=== PATIENT | male | born 2000 | race Caucasian/White ===

== ENCOUNTER 2022-03-18 20:17 | Inpatient (IN) ==
[2022-03-18 20:57] LABS: Hematocrit (blood only) 53.9 % (42-52); Hemoglobin 19.2 g/dL (14.0-18.0); Mean Corpuscular Hemoglobin 32.4 pg (25-34); Mean Corpuscular Hgb Conc 35.6 g/dL (32-36); Mean Platelet Volume 9.2 fL (7.4-10.4); Platelet Count 360 K/uL (130-400); RDW Standard Deviation 40.1 fL (36.4-46.3); Red Blood Count 5.92 M/uL (4.7-6.1); White Blood Count 25.33 K/uL (4.8-10.8)
[2022-03-18] MEDS ORDERED: SODIUM CHLORIDE 0.9% 1000ML 1,000 ML IV ONE (21:14)
[2022-03-18] MEDS ORDERED: ONDANSETRON INJ 2 MG/ML 2 ML VIAL IV STA ×2 (21:14→21:40)
[2022-03-18] MEDS ORDERED: MoRPHine SULFATE 4 MG/ML 1 ML CARP\\VIAL IV STA (21:40)
[2022-03-18] MEDS ORDERED: FAMOTIDINE 20MG IV PUSH 20 MG/5 ML SYR IV STA (21:40)
[2022-03-18] MEDS ORDERED: SODIUM CHLORIDE 0.9% 1000ML 2,000 ML IV ONE (21:42)
[2022-03-18 21:45] LABS: Bilirubin,Total 1.1 mg/dl (0.2-1.0); Calcium 10.4 mg/dl (8.5-10.1); Creatinine Clr Calc Pharmacy 78.9 ml/min; Est GFR (African American) 74.2 ml/min; Est GFR (Non-African American) 64.1 ml/min; Potassium 5.5 mmol/L (3.5-5.1)
[2022-03-18] MEDS ORDERED: LACTATED RINGER'S 1,000 ML IV SCH (21:45)
[2022-03-18 21:50] LABS: Basophils # (auto) 0.02 K/uL (0-0.2); Basophils % (auto) 0.1 %; Eosinophils # (auto) 0.03 K/uL (0-0.5); Eosinophils % (auto) 0.1 %; Immature Granulocytes # (auto) 0.25 K/uL (0.00-0.02); Lymphocytes # (auto) 1.84 K/uL (1.2-3.4); Lymphocytes % (auto) 7.3 %; Monocytes # (auto) 1.63 K/uL (0.11-0.59); Monocytes % (auto) 6.4 %; Neutrophils # (auto) 21.56 K/uL (1.4-6.5); Neutrophils % (auto) 85.1 %
[2022-03-18] MEDS ORDERED: STAT IV Infusion **Titration per Protocol STA ×2 (21:52)
[2022-03-18] MEDS ORDERED: DKA GOAL RANGE 150-250 mg/dl ONE (21:52)
[2022-03-18 21:59] LABS: Albumin Globulin Ratio 1.8 (0.9-2); Albumin Level 6.6 gm/dl (3.4-5.0); Globulin 3.6 gm/dl (2.5-4.0); Total Protein 10.2 gm/dl (6.0-8.3)
[2022-03-18] MEDS ORDERED: INSULIN REGULAR 250 UNITS in SODIUM CHLORIDE 0.9% 247.5 ML IV SCH ×2 (22:00→22:15)
[2022-03-18 22:10] LABS: iSTAT Arterial Blood Gas HCO3 4 meg/L (19-24); iSTAT Arterial Blood Gas pCO2 16 mmHg (35-46); iSTAT Arterial Blood Gas pH 7.03 (7.35-7.45); iSTAT Arterial Blood Gas pO2 120 mmHg (80-95); iSTAT Carbon Dioxide < 5 mmol/L (24-31)
[2022-03-18] MEDS ORDERED: NovoLIN-R BOLUS FROM BAG IV ONE (22:14)
[2022-03-18] MEDS ORDERED: DEXTROSE 50% 50 ML SYRINGE IV PRN (22:15)
[2022-03-18] MEDS ORDERED: CARBOHYDRATES FOR HYPOGLYCEMIA PO PRN (22:15)
[2022-03-18] MEDS ORDERED: GLUCOSE 10 TABS/TUBE PO PRN (22:15)
[2022-03-18] MEDS ORDERED: GLUCAGON FOR INJ 1 MG VIAL IM PRN (22:15)
[2022-03-18] MEDS ORDERED: GLUCOSE 40% GEL 15 GM TUBE PO PRN (22:15)
[2022-03-18 22:49] LABS: INR 1.1 (0.9-1.1); Partial Thromboplastin Ratio 1.1; Partial Thromboplastin Time 29.1 Seconds (21.0-31.0); Prothrombin Time 11.6 Seconds (9.0-12.0)
[2022-03-18 23:01] LABS: BUN Creatinine Ratio 20.4 (10-20); Calcium 8.7 mg/dl (8.5-10.1); Creatinine Clr Calc Pharmacy 115.2 ml/min; Est GFR (African American) 113.1 ml/min; Est GFR (Non-African American) 97.6 ml/min; Magnesium 2.1 mg/dl (1.7-2.4); Phosphorus 5.2 mg/dl (2.5-4.9); Potassium 6.4 mmol/L (3.5-5.1); Troponin I High Sensitivity 7.8 pg/ml (0-20)
[2022-03-18] MEDS ORDERED: CALCIUM GLUCONATE 1,000 MG/60 ML BAG IV ONE (23:04)
[2022-03-18] MEDS ORDERED: SODIUM BICARB 8.4% INJ 50 MEQ/50 ML SYR IV STA (23:04)
[2022-03-18] MEDS ORDERED: STAT IV STA (23:04)
[2022-03-18 23:09] LABS: Influenza A virus by PCR Negative (Neg); Influenza B virus by PCR Negative (Neg); RSV by PCR Negative (Neg); SARS CoV2 RNA(COVID-19) InHosp NEGATIVE (Negative)
[2022-03-18] MEDS ORDERED: OPTIRAY 320 100ml IV ONE (23:09)
[2022-03-18] MEDS ORDERED: METOCLOPRAMIDE HCL INJ 5 MG/ML 2 ML VIAL IV ONE ×2 (23:26→23:27)
--- NOTE | 2022-03-19 01:09 | Emergency Department Note ---
History of Present Illness General Chief complaint: Hyperglycemia Stated complaint: DEHYDRATED, DIABETIC Time Seen by Provider: 03/18/22 21:30 History of Present Illness Maximum Pain Intensity: 5 This 21-year-old type I diabetic on a pump presents to the ER complaining of nausea vomiting abdominal pain and his pump quit working last night Location: Generalized Quality: Weak and dehydrated Severity: Severe Duration: Last night Timing: Last night Context: Patient continued to vomit and came in Modifying factors: better with nothing; worse with nothing patient states he is in town visiting. He is from the [facility]. Patient is unsure how much insulin he uses daily. Patient complains s of nausea vomiting abdominal pain. patient states he only has been in DKA's with his initial diagnosis of diabetes when he was young. Patient denies chest pain, dyspnea, fever, chills, flulike illness. Home Medications Medication Instructions Recorded Confirmed Type insulin aspart U-100 100 unit/mL 0 unit CONTINUOUS SUBCUTANEOUS 03/18/22 03/18/22 History subcutaneous solution (Novolog INFUSION CONTINOUS U-100 Insulin aspart) Allergies Allergy/AdvReac Type Severity Reaction Status Date / Time No Known Allergies Allergy Verified 03/18/22 21:12 Past Med/Surg History Medical History Diabetes Surgical History No pertinent past surgical history Social History Smoking Status: Never smoker Preferred Language: Tajik Feels Safe at Home: Yes Review of Systems A total of 10 systems reviewed and were otherwise negative Physical Exam Vital Signs Vital Signs - 24 hr 03/18/22 20:22 03/18/22 20:50 03/18/22 21:00 Temperature 36.3 C L Temperature Source Temporal Artery Scan Pulse Rate 99 H 93 H 97 H Pulse Rate from SpO2 Sensor Respiratory Rate 97 H 24 14 Respiratory Effort / Characteristics Non-Labored Spontaneous Respiratory Depth Normal Respiratory Pattern Regular Blood Pressure 145/91 H 158/97 H 164/117 H Blood Pressure Mean 109 117 132 Blood Pressure Position Sitting Pulse Oximetry 97 Oxygen Delivery Method Room Air Sepsis Recent Fever Within 48 Hours No Sepsis New/Unexplained Change in Mental Status N/A Sepsis Action Taken by Nursing No Action Required 03/18/22:30 03/18/22 22:00 03/18/22 22:30 Temperature Temperature Source Pulse Rate 99 H 106 H 117 H Pulse Rate from SpO2 Sensor Respiratory Rate 25 H 22 23 Respiratory Effort / Characteristics Respiratory Depth Respiratory Pattern Blood Pressure 172/80 H Blood Pressure Mean 110 Blood Pressure Position Pulse Oximetry Oxygen Delivery Method Sepsis Recent Fever Within 48 Hours Sepsis New/Unexplained Change in Mental Status Sepsis Action Taken by Nursing 03/18/22 23:13 03/18/22 23:15 03/18/22 23:30 Temperature Temperature Source Pulse Rate 113 H 106 H 105 H Pulse Rate from SpO2 Sensor 107 H 104 H Respiratory Rate 19 20 20 Respiratory Effort / Characteristics Respiratory Depth Respiratory Pattern Blood Pressure 151/87 H 160/90 H Blood Pressure Mean 108 113 Blood Pressure Position Pulse Oximetry 97 98 Oxygen Delivery Method Sepsis Recent Fever Within 48 Hours Sepsis New/Unexplained Change in Mental Status Sepsis Action Taken by Nursing 03/18/22 23:59 03/19/22 00:55 Temperature 36.5 C Temperature Source Oral Pulse Rate 102 H Pulse Rate from SpO2 Sensor 103 H Respiratory Rate 24 Respiratory Effort / Characteristics Respiratory Depth Respiratory Pattern Blood Pressure 131/84 Blood Pressure Mean 99 Blood Pressure Position Pulse Oximetry 96 Oxygen Delivery Method Sepsis Recent Fever Within 48 Hours Sepsis New/Unexplained Change in Mental Status Sepsis Action Taken by Nursing VITALS: Vitals are noted on the nurse's note and reviewed by myself. Vital signs tachypneic and tachycardic. GENERAL: Acutely ill-appearing male with Kussmaul breathing diaphoretic vomiting SKIN: The skin was without rashes, erythema, edema, or bruising. There is no tenting of the skin. Capillary reflex less than 2 seconds. HEAD: Normocephalic atraumatic. EARS: External auditory canals clear, tympanic membranes pearly cole without erythema or effusion bilaterally. EYES: Pupils equal round and reactive to light and accommodation. Conjunctivae without injection, sclerae without icterus. Extraocular movements intact. NOSE: Patent, turbinates without inflammation or discharge. No sinus tenderness. MOUTH: Mucous membranes dry. Pharynx without erythema or exudate. Uvula midline. Airway patent. Tongue does not deviate. NECK: Supple without nuchal rigidity. No lymphadenopathy. No thyromegaly. Cervical spine is nontender. No JVD. HEART: Tachycardic rate and rhythm LUNGS: Clear to auscultation bilaterally without wheezes, rales or rhonchi. No retractions or accessory muscle use. ABDOMEN: Positive bowel sounds x 4. Normal tympanic percussion. Soft, mild diffuse tenderness, without masses or organomegaly. Haines sign negative. No guarding or rebound tenderness. No CVA tenderness MUSCULOSKELETAL: No muscle atrophy, erythema, or edema noted. NEURO: Patient was alert and oriented to person place and time. Normal sensation to light and sharp touch. No focal neurological deficits. Course Administered Medications Lactated Ringer's (Lr) 1,000 mls @ 125 mls/hr IV .Q8H NISHA Stop: 04/17/22 21:44 Last Admin: 03/18/22 23:31 Dose: 125 mls/hr Documented by: [id number] Insulin Human Regular 250 (units/ Sodium Chloride) 250 mls @ 0 mls/hr IV .Q0M NISHA; Protocol Stop: 04/17/22 21:59 Last Titration: 03/19/22 00:43 Dose: 0 unit/hr, 0 mls/hr Documented by: [id number] Cosigned by: [id number] Titration: 03/18/22 23:43 Dose: 9.7 unit/hr, 9.7 mls/hr Documented by: [id number] Cosigned by: [id number] Admin: 03/18/22 22:30 Dose: 8.1 unit/hr, 8.1 mls/hr Documented by: [id number] Cosigned by: [id number] Discontinued Medications Sodium Chloride (Nss 1000ml) 1,000 mls @ 999 mls/hr IV .Q1H1M ONE Stop: 03/18/22 22:14 Last Infusion: 03/18/22 21:41 Dose: 0 mls/hr Documented by: [id number] Admin: 03/18/22 20:36 Dose: 999 mls/hr Documented by: [id number] Famotidine (Pepcid 20mg Iv Push) 20 mg in 5 mls @ 2.5 mls/min IV NOW STA Stop: 03/18/22 21:41 Last Admin: 03/18/22 22:09 Dose: 2.5 mls/min Documented by: [id number] Sodium Chloride (Nss 1000ml) 2,000 mls @ 999 mls/hr IV .Q2H1M ONE Stop: 03/18/22 23:42 Last Infusion: 03/19/22 00:32 Dose: 0 mls/hr Documented by: [id number] Admin: 03/18/22 22:01 Dose: 999 mls/hr Documented by: [id number] Calcium Gluconate () 1,000 mg in 60 mls @ 240 mls/hr IV NOW ONE Stop: 03/18/22 23:18 Last Infusion: 03/19/22 00:32 Dose: 0 mls/hr Documented by: [id number] Admin: 03/18/22 23:30 Dose: 240 mls/hr Documented by: [id number] Insulin Human Regular (Novolin-R Bolus From Bag) 8.1 units IV ONE ONE Stop: 03/18/22 22:15 Last Admin: 03/18/22 22:55 Dose: 8.1 units Documented by: [id number] Cosigned by: [id number] Ioversol (Optiray 320 100ml) 94 ml IV ONCE ONE Stop: 03/18/22 23:10 Last Admin: 03/18/22 23:09 Dose: 94 ml Documented by: [id number] Metoclopramide HCl (Metoclopramide Hcl Inj 5 Mg/Ml 2 Ml Vial) 5 mg IV ONE ONE Stop: 03/18/22 23:27 Last Admin: 03/19/22 00:31 Dose: Not Given Documented by: [id number] Metoclopramide HCl (Metoclopramide Hcl Inj 5 Mg/Ml 2 Ml Vial) 5 mg IV ONE ONE Stop: 03/18/22 23:28 Last Admin: 03/18/22 23:32 Dose: 5 mg Documented by: [id number] Morphine Sulfate (Morphine Sulfate 4 Mg/Ml 1 Ml Carp\Vial) 4 mg IV NOW STA Stop: 03/18/22 21:41 Last Admin: 03/18/22 22:08 Dose: 4 mg Documented by: [id number] Ondansetron HCl (Ondansetron Inj 2 Mg/Ml 2 Ml Vial) 4 mg IV NOW STA Stop: 03/18/22 21:15 Last Admin: 03/18/22 21:20 Dose: 4 mg Documented by: [id number] Ondansetron HCl (Ondansetron Inj 2 Mg/Ml 2 Ml Vial) 4 mg IV NOW STA Stop: 03/18/22 21:41 Last Admin: 03/18/22 23:31 Dose: Not Given Documented by: [id number] Sodium Bicarbonate (Sodium Bicarb 8.4% Inj 50 Meq/50 Ml Syr) 50 meq IV NOW STA Stop: 03/18/22 23:05 Last Admin: 03/18/22 23:30 Dose: 50 meq Documented by: [id number] Critical Care Time Critical Care Time: Yes Total Critical Care Time: 65 I have personally spent 65 minutes of critical care time in the direct management of this patient. This includes bedside care, interpretation of diagnostic studies, and testing, discussion with consultants, patient, and family members, and other required patient management activities. This 65 minutes is in excess of all separately billable procedures. Medical Decision Making Medical Records Attestation: I reviewed the patient's medical records. Home Medications Current Medication List: was personally reviewed by me Laboratory Data Attestation: I reviewed the patient's lab results. Result diagrams: 03/18/22 20:40 03/18/22 22:21 Lab Results 03/18/22 03/18/22 03/18/22 Range/Units 20:40 20:40 21:56 WBC 25.33 H (4.8-10.8) K/uL RBC 5.92 (4.7-6.1) M/uL Hgb 19.2 H (14.0-18.0) g/dL Hct 53.9 H (42-52) % MCV 91.0 (80-100) fL MCH 32.4 (25-34) pg MCHC 35.6 (32-36) g/dL RDW Std Deviation 40.1 (36.4-46.3) fL RDW Coeff of Lula 12.0 (11.5-14.5) % Plt Count 360 (130-400) K/uL MPV 9.2 (7.4-10.4) fL Immature Gran % (Auto) 1.0 % Neut % (Auto) 85.1 % Lymph % (Auto) 7.3 % Sheridan % (Auto) 6.4 % Eos % (Auto) 0.1 % Baso % (Auto) 0.1 % Neut # (Auto) 21.56 H (1.4-6.5) K/uL Lymph # (Auto) 1.84 (1.2-3.4) K/uL Sheridan # (Auto) 1.63 H (0.11-0.59) K/uL Eos # (Auto) 0.03 (0-0.5) K/uL Baso # (Auto) 0.02 (0-0.2) K/uL Immature Gran # (Auto) 0.25 H (0.00-0.02) K/uL PT (9.0-12.0) Seconds INR (0.9-1.1) APTT (21.0-31.0) Seconds PTT Ratio POC pH 7.03 L* (7.35-7.45) POC pCO2 16 L (35-46) mmHg POC pO2 120 H (80-95) mmHg POC HCO3 4 L (19-24) arpit/L POC Total CO2 < 5 L* (24-31) mmol/L POC Base Excess -27.0 L (-9-1.8) arpit/L POC ABG O2 Sat 96.0 H (90-95) % Sodium 131 L (136-145) mmol/L Potassium 5.5 H (3.5-5.1) mmol/L Chloride 92 L (98-107) mmol/L Carbon Dioxide 8 L* (21-32) mmol/L Anion Gap 31 H (3-11) BUN 23 (6-23) mg/dl Creatinine 1.53 H (0.6-1.4) mg/dl Est Cr Clr Drug Dosing 78.9 ml/min Est GFR ( Amer) 74.2 ml/min Est GFR (Non-Af Amer) 64.1 ml/min BUN/Creatinine Ratio 15.0 (10-20) Glucose 556 H* (70-99(Fasting)) mg/dl Lactate (0.4-2.0) mmol/L Calcium 10.4 H (8.5-10.1) mg/dl Phosphorus (2.5-4.9) mg/dl Magnesium (1.7-2.4) mg/dl Total Bilirubin 1.1 H (0.2-1.0) mg/dl AST 19 (13-39) U/L ALT 25 (7-52) U/L Alkaline Phosphatase 145 H (34-104) U/L Troponin I High Sens (0-20) pg/ml Total Protein 10.2 H (6.0-8.3) gm/dl Albumin 6.6 H (3.4-5.0) gm/dl Globulin 3.6 (2.5-4.0) gm/dl Albumin/Globulin Ratio 1.8 (0.9-2) Procalcitonin (0-0.5) ng/ml SARS-CoV-2 (PCR) (Negative) Influenza Type A (PCR) (Neg) Influenza Type B (PCR) (Neg) RSV (RT-PCR) (Neg) 03/18/22 03/18/22 03/18/22 Range/Units 22:21 22:21 22:21 WBC (4.8-10.8) K/uL RBC (4.7-6.1) M/uL Hgb (14.0-18.0) g/dL Hct (42-52) % MCV (80-100) fL MCH (25-34) pg MCHC (32-36) g/dL RDW Std Deviation (36.4-46.3) fL RDW Coeff of Lula (11.5-14.5) % Plt Count (130-400) K/uL MPV (7.4-10.4) fL Immature Gran % (Auto) % Neut % (Auto) % Lymph % (Auto) % Sheridan % (Auto) % Eos % (Auto) % Baso % (Auto) % Neut # (Auto) (1.4-6.5) K/uL Lymph # (Auto) (1.2-3.4) K/uL Sheridan # (Auto) (0.11-0.59) K/uL Eos # (Auto) (0-0.5) K/uL Baso # (Auto) (0-0.2) K/uL Immature Gran # (Auto) (0.00-0.02) K/uL PT 11.6 (9.0-12.0) Seconds INR 1.1 (0.9-1.1) APTT 29.1 (21.0-31.0) Seconds PTT Ratio 1.1 POC pH (7.35-7.45) POC pCO2 (35-46) mmHg POC pO2 (80-95) mmHg POC HCO3 (19-24) arpit/L POC Total CO2 (24-31) mmol/L POC Base Excess (-9-1.8) arpit/L POC ABG O2 Sat (90-95) % Sodium 133 L (136-145) mmol/L Potassium 6.4 H* (3.5-5.1) mmol/L Chloride 103 (98-107) mmol/L Carbon Dioxide 4 L* (21-32) mmol/L Anion Gap 26 H (3-11) BUN 22 (6-23) mg/dl Creatinine 1.08 D (0.6-1.4) mg/dl Est Cr Clr Drug Dosing 115.2 ml/min Est GFR ( Amer) 113.1 ml/min Est GFR (Non-Af Amer) 97.6 ml/min BUN/Creatinine Ratio 20.4 H (10-20) Glucose 496 H* (70-99(Fasting)) mg/dl Lactate 3.7 H* (0.4-2.0) mmol/L Calcium 8.7 (8.5-10.1) mg/dl Phosphorus 5.2 H (2.5-4.9) mg/dl Magnesium 2.1 (1.7-2.4) mg/dl Total Bilirubin (0.2-1.0) mg/dl AST (13-39) U/L ALT (7-52) U/L Alkaline Phosphatase (34-104) U/L Troponin I High Sens 7.8 (0-20) pg/ml Total Protein (6.0-8.3) gm/dl Albumin (3.4-5.0) gm/dl Globulin (2.5-4.0) gm/dl Albumin/Globulin Ratio (0.9-2) Procalcitonin (0-0.5) ng/ml SARS-CoV-2 (PCR) (Negative) Influenza Type A (PCR) (Neg) Influenza Type B (PCR) (Neg) RSV (RT-PCR) (Neg) 03/18/22 03/18/22 03/18/22 Range/Units 22:21 22:21 Unknown WBC (4.8-10.8) K/uL RBC (4.7-6.1) M/uL Hgb (14.0-18.0) g/dL Hct (42-52) % MCV (80-100) fL MCH (25-34) pg MCHC (32-36) g/dL RDW Std Deviation (36.4-46.3) fL RDW Coeff of Lula (11.5-14.5) % Plt Count (130-400) K/uL MPV (7.4-10.4) fL Immature Gran % (Auto) % Neut % (Auto) % Lymph % (Auto) % Sheridan % (Auto) % Eos % (Auto) % Baso % (Auto) % Neut # (Auto) (1.4-6.5) K/uL Lymph # (Auto) (1.2-3.4) K/uL Sheridan # (Auto) (0.11-0.59) K/uL Eos # (Auto) (0-0.5) K/uL Baso # (Auto) (0-0.2) K/uL Immature Gran # (Auto) (0.00-0.02) K/uL PT (9.0-12.0) Seconds INR (0.9-1.1) APTT (21.0-31.0) Seconds PTT Ratio POC pH (7.35-7.45) POC pCO2 (35-46) mmHg POC pO2 (80-95) mmHg POC HCO3 (19-24) arpit/L POC Total CO2 (24-31) mmol/L POC Base Excess (-9-1.8) arpit/L POC ABG O2 Sat (90-95) % Sodium (136-145) mmol/L Potassium (3.5-5.1) mmol/L Chloride (98-107) mmol/L Carbon Dioxide (21-32) mmol/L Anion Gap (3-11) BUN (6-23) mg/dl Creatinine (0.6-1.4) mg/dl Est Cr Clr Drug Dosing ml/min Est GFR ( Amer) ml/min Est GFR (Non-Af Amer) ml/min BUN/Creatinine Ratio (10-20) Glucose (70-99(Fasting)) mg/dl Lactate (0.4-2.0) mmol/L Calcium (8.5-10.1) mg/dl Phosphorus (2.5-4.9) mg/dl Magnesium 2.0 (1.7-2.4) mg/dl Total Bilirubin (0.2-1.0) mg/dl AST (13-39) U/L ALT (7-52) U/L Alkaline Phosphatase (34-104) U/L Troponin I High Sens (0-20) pg/ml Total Protein (6.0-8.3) gm/dl Albumin (3.4-5.0) gm/dl Globulin (2.5-4.0) gm/dl Albumin/Globulin Ratio (0.9-2) Procalcitonin 0.60 H (0-0.5) ng/ml SARS-CoV-2 (PCR) NEGATIVE (Negative) Influenza Type A (PCR) Negative (Neg) Influenza Type B (PCR) Negative (Neg) RSV (RT-PCR) Negative (Neg) Imaging Data Attestation: I personally reviewed and interpreted this imaging study as follows: MDM Narrative Prior records/ancillary studies reviewed and summarized above. Nursing notes reviewed. Additional history obtained from family. The patient's history was concerning for hyperglycemia with vomiting diarrhea and abdominal pain. Differential diagnosis: Etiologies such as metabolic, infection, hypo/hyperglycemia, electrolyte abnormalities, cardiac sources, intracerebral event, toxicologic, neurologic, as well as others were entertained. Physical examination: As above. ER treatment provided: IV Lock An order was placed for continuous cardiac monitoring. The monitor shows a rate of 60-1 80 with a sinus rhythm. IV lines, i-STAT ABG, 3 L, Zofran Reglan Pepcid morphine and insulin drip On reassessment the patient felt better. Diagnostics interpretation by me: ECG: Ordered for weakness and tachycardia EKG: Normal sinus, normal intervals, no acute ST-T wave changes. Impression sinus tachycardia interpreted by myself I think arrhythmia is unlikely. EKG shows normal sinus rhythm with no interval abnormalities such as QT prolongation or WPW. There are no findings to suggest Brugada syndrome. Cardiac monitoring in the emergency department reveals no tachycardic or bradycardic dysrhythmia. Hypertrophic cardiomyopathy was considered but there are no clear historical elements pointing toward this. EKG is not suggestive. The QRS voltage is not extremely large and there are no suggestive Q waves. The labs revealed [id number] ABG with pH of 7 Leukocytosis, negative COVID Blood cultures pending Imaging studies: Chest x-ray with no acute consolidation, pneumothorax or free air per my interpretation Preliminary Findings Only See Final Report For Complete Findings CT ABDOMEN & PELVIS With Contrast: The lower thorax is clear. Liver, gallbladder, pancreas, spleen and adrenals intact. The kidneys are intact. Bladder distended. Normal appendix. Stomach severely distended filled mostly by fluid. No adenopathy, free fluid or free air. No acute findings in the bones. Impression: Severely distended stomach possibly secondary to gastroparesis/gastr oenteritis.. Radiologist: Dio Timmons M.D. Consultation: A consultation was placed with the hospitalist and the solar panel technician was contacted by the admitting doctor per his request. The case was discussed and diagnostics were reviewed. The patient was evaluated in the ER for further treatment. Exam and history seem consistent with severe DKA. Patient was reassessed multiple times. 2 lines were immediately initiated. He was given 3 L. Insulin drip was then ordered. Maintenance fluids were written for. CAT scan was reviewed. He was then given Reglan. Medicine was consulted. With discussion with the admitting doctor admitting team will write for calcium and bicarb as the repeat potassium was higher and the CO2 was lower. He will be admitted. By the evaluation outlined above emergent etiologies such as cardiac sources, intracerebral event, neurologic, as well as others were deemed relatively unlikely. The pt informed about the findings as listed above. All questions were answered and pleased with the treatment. The chart was completed utilizing [employer] Speech voice recognition software. Grammatical errors, random word insertions, pronoun errors, and incomplete sentences are an occassional consequence of this system due to software limitations, ambient noise, and hardware issues. Any formal questions or concerns about the content, text, or information contained within the body of this dictation should be directly addressed to the physician conference assistant for clarification. Impression & Plan DKA, type 1 Discharge Plan Visit Data Chief Complaint: Hyperglycemia Stated Complaint: DEHYDRATED, DIABETIC ED Provider: Emma Carrasquillo ED Midlevel Provider: Seema Russo Discharge Problem: DKA, type 1 Patient Disposition: Admitted As Inpatient Condition: Critical Discharge Instructions Interventions: ED Discharge Assessment Last Done: 03/19/22 00:55 Forms Stand Alone Forms: My [facility] Prescriptions Prescriptions: No Action insulin aspart U-100 [Novolog U-100 Insulin aspart] 100 unit/mL Solution 0 unit continuous subcutaneous infusion CONTINOUS RF: 0 Referrals Referrals: PCP,NO [Primary Care Provider] - Discharge Problem: DKA, type 1 Qualifiers: Diabetes mellitus complication detail: without coma Qualified Code(s): E10.10 - Type 1 diabetes mellitus with ketoacidosis without coma
[2022-03-19 01:25] LABS: Appearance Urine Clear (Clear); Bacteria Urine Automated Negative (Negative); Bilirubin Urine Negative (Negative); Blood Urine Trace (Negative); Color Urine Yellow; Epithelial Cell Urine Auto 0-5 /lpf (0-5); Glucose Urine UA 3+ (Negative); Ketones Urine 4+ (Negative); Leukocyte Esterase Urine Negative (Negative); Nitrite Urine Negative (Negative); Protein Urine 1+ (Negative); RBC Urine Automated 0-4 /hpf (0-4); Specific Gravity Urine 1.037 (1.000-1.030); Urobilinogen Urine Negative (Negative)
[2022-03-19] MEDS ORDERED: STAT IV Infusion **Titration per Protocol STA ×2 (01:43)
[2022-03-19] MEDS ORDERED: SODIUM CHLORIDE 0.45 % 1,000 ML IV SCH (01:43)
[2022-03-19] MEDS ORDERED: INSULIN REGULAR 250 UNITS in SODIUM CHLORIDE 0.9% 247.5 ML IV SCH (01:43)
[2022-03-19] MEDS ORDERED: PHARMACY GLYCEMIC MGMT CONSULT PRN (01:43)
[2022-03-19] MEDS ORDERED: ICU PROTOCOL FOR HYPERGLYCEMIA PRN (01:43)
[2022-03-19] MEDS ORDERED: DC ALL PREVIOUSLY ORDERED DIABETES MEDS ONE (01:43)
[2022-03-19] MEDS ORDERED: DKA GOAL RANGE 150-250 mg/dl ONE (01:43)
[2022-03-19] MEDS ORDERED: PENDING 1/2NSS+20mEq KCL IVF SCH (02:00)
[2022-03-19] MEDS ORDERED: PENDING D5 1/2NS+20mEq KCL IVF SCH (02:00)
[2022-03-19] MEDS ORDERED: PIPERACILLIN/TAZOBACTAM 3.375 GM in DEXTROSE 5% 100 ML IV ONE (02:00)
--- NOTE | 2022-03-19 02:04 | History and Physical Report ---
DATE OF ADMISSION: 03/18/2022. CHIEF COMPLAINT: DKA. HISTORY OF PRESENT ILLNESS: A 21-year-old male with past medical history significant for type 1 diabetes since 2012, on insulin pump, comes with DKA. The patient says since last night his machine is not working, today getting dehydrated, nausea, vomiting, abdominal pain, not feeling well, came to the ER, found to have DKA, was tachycardic, received 3 L of fluids so far. Initial potassium was 5.5, repeat potassium was 6.4. ABGs: The pH of 7.03, bicarb is 4, lactate is 3.7, glucose initially was 556, repeat is 496 _ procalcitonin 0.6 .Was started on insulin drip in the ER. The patient denies any chest pain. He states he has some tachypnea. Denies any headache, has some blurred visions. Currently, no runny nose. Throat is sore from nausea. Normal bowel and bladder movements. No swelling in the legs. The patient is somewhat lethargic. ALLERGIES: No known drug allergies. PAST MEDICAL HISTORY: As mentioned above. PAST SURGICAL HISTORY: Circumcision, excision of pilonidal cyst, right shoulder arthroscopy. MEDICATIONS: Insulin pump. FAMILY HISTORY: Significant for father had alcoholism. Mother has allergies. Maternal grandmother has diabetes, Audrey's thyroiditis. Maternal grandfather has emphysema. Uncle has lung cancer. Maternal grandfather has heart murmur. Mother has lung disorder and prediabetes. SOCIAL HISTORY: Single, no smoking, no alcohol, no drug use. REVIEW OF SYSTEMS: As per HPI. Rest of the review of systems is negative. PHYSICAL EXAMINATION: GENERAL: The patient is somewhat drowsy. VITAL SIGNS: Temperature 36.3, pulse 99, respiratory rate 24, blood pressure 145/91, oxygen 97% on room air. HEENT: Pupils equal, round and reactive to light. Oral mucosa dry. NECK: No JVD, no neck masses. CARDIOVASCULAR: S1 and S2 heard. Tachycardia. No murmurs. RESPIRATORY SYSTEM: Normal AP diameter. No accessory muscle use. No wheezing. No crackles. ABDOMEN: Soft. Bowel sounds are present, nontender, no distention. CENTRAL NERVOUS SYSTEM: Somewhat drowsy, but arousable. Speech is okay. No facial droop. Obeys simple commands. Moves extremities. EXTREMITIES: No edema, no erythema. LABORATORY: WBC 25.3, hemoglobin 19.2, hematocrit 53.9, platelets 360, PT 11.6, INR 1.1, APTT 29.1. Point of care pH 7.03, point of care CO2 of 16, bicarbonate 4. Sodium is 133, potassium 6.4, chloride 103, bicarbonate 4, BUN 22, creatinine 1, serum glucose 496. Lactate 3.7, magnesium 2, total bilirubin 1.1, AST 19, ALT 25, alkaline phosphatase 145. Procalcitonin 0.6. SARS-CoV-2 PCR negative. Influenza A and B PCR negative. RSV PCR negative. IMAGING: Chest x-ray, no acute findings. CTA abdomen and pelvis, results are pending. EKG: Sinus tachycardia at a rate of 114, no acute ST changes seen. ASSESSMENT AND PLAN: This is a 21-year-old male who presents with diabetic ketoacidosis. 1. Diabetic ketoacidosis Hx of type 1 diabetes since 2012 per patient.Says his insulin pump was not working last night and presented with DKA today. Point of care PH 7.03, bicarb is 4. Sodium is 133, potassium 6.4. Lactate 3.7. Glucose currently is 496. Received 3 liters of fluid in the ER, he was started on insulin drip. The patient has significant metabolic abnormalities. We will also give 1 amp of sodium bicarbonate and 1 amp of calcium gluconate. Continue with DKA protocol with aggressive fluids and insulin drip protocol and close monitoring of the labs and close monitoring in the ICU. 2. Leukocytosis. Elevated procalcitonin empirically started on Zosyn. Follow the cultures. 3. Hyperkalemia. The patient getting started on insulin drip and also getting amp of bicarb and and calcium gluconate. Follow the repeat labs. 4. Hyponatremia. Sodium 133, mostly pseudo hyponatremia from hyperglycemia. 5. Deep venous thrombosis prophylaxis. Placed on Lovenox. DISPOSITION: Closely monitor in the ICU. Level 1 full code. Expect to discharge home and follow with family doctor. Job ID: [id number] [facility]
--- NOTE | 2022-03-19 02:07 | Critical Care Consultation ---
Date of Consultation March 19, 2022 Assessment & Plan (1) DKA, type 1: Reason Critically Ill: 21-year-old male presents to the ICU with severe metabolic acidosis secondary to DKA after experiencing pump malfunction Neuro - [facility] ICU: Negative Cardiac - Tachycardialikely secondary to DKA/dehydration. Expect to improve with fluid resuscitation -Currently sinus tachycardia on monitor -Troponin within normal limits -Continuous monitoring on telemetry Respiratory - Shortness of breathlikely compensated Tory to metabolic acidosis. Improving with correction of acidosis. Currently maintaining oxygen saturation on room air. Continuous monitor on pulse ox. Monitor GI - Abdominal pain/nausea and vomitingsecondary to DKA/gastroparesis. Improving -Continue antiemetics as needed -We will hold on NG tube suction as this appears to be resolving RENAL/LYTES - AKIinitial creatinine 1.53, improving with fluid resuscitation. Suspect this is likely due to severe dehydration in the setting of DKA -Continue with IV fluids per DKA protocol -Trending frequent BMPs. Patient did exhibit severe electrolyte abnormalities and expect to improve with correction of acidosis/glucose -Lactic acidosis improving -Monitor - Strict I's and O's ENDO - DKApatient with initial glucose 546, positive ketones, and pH 7.04 -Did receive 1 amp of bicarb as his potassium was 6.4 initially -Received 3 L crystalloid and started on insulin drip. Continue insulin drip and IV fluid resuscitation per DKA protocol -Monitor frequent BMPs and VBG -Patient's home insulin pump currently disconnected. We will transition to basal bolus/sliding scale once anion gap closed and bicarb above 16 -Follow-up A1c HEME - H&H stable, monitor routine CBCs ID - No indication for infectious process at this time LINES/IV ACCESS - Peripheral IVs DVT PROPHYLAXIS - SCDs I have personally spent 45 minutes of critical care time in the direct management of this patient. This is a life/limb threatening event. This includes time spent evaluating patient, direct bedside care, chart review, placing orders, interpretation of diagnostic studies, discussion with consultants, patient, and family members, as well as other required patient management activities. This time is exclusive of all separately billable procedures, and teaching time and separate from and in addition to any other critical care service time. Thank you for allowing us to participate in the care of this patient. Please refer to my attending physician's documentation for any further recommendations. (2) Metabolic acidosis: (3) Lactic acidosis: (4) Hyperkalemia: (5) Shortness of breath: (6) Nausea: (7) Abdominal pain: (8) Diabetes type I: (9) DILAN (acute kidney injury): History of Present Illness Attending Physician: Dang See MD History of Present Illness Mr. Lynn is a pleasant 21-year-old male with history of diabetes type 1 who was first diagnosed in 2011. Patient states that his blood glucose is normally controlled well with insulin pump. He presented to the emergency department earlier this evening with complaints of nausea vomiting, abdominal pain, and hyp erglycemia. Patient states that he left his insulin pump on accident at a friend's house the night before and we have to retrieve it but was already experiencing significantly high blood glucose level, and was unable to control his glucose with insulin pump. Patient began to experience nausea and vomiting on the morning of 03/18. Patient reports that he has not had an episode of DKA since his initial diagnosis in 2011. On arrival to the emergency department he was noted to have severe high anion gap metabolic acidosis, positive ketones in urine, and significantly elevated blood glucose of 546. He was given 3 L crystalloid bolus and started on insulin drip. Patient did have hyperkalemia with potassium of 6.4 and was given 1 amp of bicarb. He did undergo CT abdomen and pelvis which showed evidence of gastroparesis with distended stomach, otherwise unremarkable. He is now transferred to ICU for further management at this time. On arrival to the ICU the patient is alert and oriented and appears comfortable at rest. He is no longer exhibiting nausea or vomiting and states abdominal pain has significantly improved and is only mildly tender with palpation. He did report some shortness of breath early this evening but this is also improved. He denies recent illness, fevers, headache, syncope, sore throat, cough, chest pain or palpitations, current nausea or diarrhea. Allergies Allergy/AdvReac Type Severity Reaction Status Date / Time No Known Allergies Allergy Verified 03/18/22 21:12 Home Medications Medication Instructions Recorded Confirmed Type insulin aspart U-100 100 unit/mL 0 unit CONTINUOUS SUBCUTANEOUS 03/18/22 03/18/22 History subcutaneous solution (Novolog INFUSION CONTINOUS U-100 Insulin aspart) Patient History Medical History Diabetes Surgical History No pertinent past surgical history Social History Smoking Status: Never smoker Hx Alcohol Use: Yes Alcohol type: beer and hard liquor Hx Substance Use: No Preferred Language: Amharic Beliefs That Will Affect Care: None Current Living Situation: Family Other Information That Helps Us Care for You: No Feels Safe at Home: Yes Safety Concerns: Feels Safe At This Time Assistive Devices: None Review of Systems Review of Systems: All systems reviewed & are unremarkable except as noted in HPI & below Physical Exam Constitutional: WD/WN, vitals as above cooperative and comfortable Eyes: PERRL, conjunctivae normal, anicteric sclerae ENMT: external ear and nose normal, oropharynx normal Neck: trachea midline, no thyromegaly Respiratory: normal respiratory effort, lungs clear to auscultation Cardiovascular: RRR, no murmur, no edema Heart Sounds: normal S1 and normal S2 Extremities: normal capillary refill; no edema Gastrointestinal (Abdomen): Abdomen soft and flat mildly tender in the gastric region with palpation. Positive bowel sounds all 4 quadrants Musculoskeletal: no cyanosis or clubbing, extremities motor strength 5/5 Skin: no rashes, warm and dry Neurologic: PERRL, EOMI, accommodation nl, no face palsy, no dysarthria Psychiatric: A+Ox3, euthymic affect Results & Data Results & Data ([facility]) Vital Signs (Past 12 Hours) Vital Signs Temp Pulse Pulse Resp BP BP Pulse Ox 03/19/22 01:42 36.9 C 114 H 24 146/89 H 98 03/19/22 00:55 36.5 C 03/18/22 23:59 102 H 24 131/84 96 03/18/22 23:30 105 H 20 160/90 H 98 03/18/22 23:15 106 H 20 151/87 H 97 03/18/22 23:13 113 H 19 03/18/22 22:30 117 H 23 03/18/22 22:00 106 H 22 03/18/22 21:30 99 H 25 H 172/80 H 03/18/22 21:00 97 H 14 164/117 H 03/18/22 20:50 93 H 24 158/97 H 03/18/22 20:22 36.3 C L 99 H 97 H 145/91 H 97 Coding Level of Care Code Critical Care 1st 30-74 mins Diagnoses DKA, type 1 E10.10 Diabetes mellitus complication detail: without coma Metabolic acidosis E87.2 Lactic acidosis E87.2 Hyperkalemia E87.5 Shortness of breath R06.02 Nausea R11.0 Abdominal pain R10.9 Diabetes type I E10.9 DILAN (acute kidney injury) N17.9 (1) DKA, type 1 Diabetes mellitus complication detail: without coma Qualified Code(s): E10.10 - Type 1 diabetes mellitus with ketoacidosis without coma
[2022-03-19] MEDS: MoRPHine SULFATE 2 MG/ML CARP IV PRN ×2 (03:06→05:48)
[2022-03-19 03:12] LABS: BUN Creatinine Ratio 17.9 (10-20); Calcium 8.9 mg/dl (8.5-10.1); Creatinine Clr Calc Pharmacy 117.4 ml/min; Est GFR (African American) 115.7 ml/min; Est GFR (Non-African American) 99.8 ml/min; Magnesium 2.1 mg/dl (1.7-2.4); Potassium 5.5 mmol/L (3.5-5.1); Troponin I High Sensitivity 5.6 pg/ml (0-20)
[2022-03-19 03:29] LABS: Phosphorus 2.4 mg/dl (2.5-4.9)
[2022-03-19] MEDS ORDERED: D5W AND 1/2NSS + 20MEQ KCL 20 MEQ/1,000 ML BAG IV SCH (03:30)
[2022-03-19 03:33] LABS: Appearance Urine Clear (Clear); Bacteria Urine Automated Negative (Negative); Bilirubin Urine Negative (Negative); Blood Urine Trace (Negative); Color Urine Yellow; Epithelial Cell Urine Auto 0-5 /lpf (0-5); Glucose Urine UA 3+ (Negative); Ketones Urine 4+ (Negative); Leukocyte Esterase Urine Negative (Negative); Nitrite Urine Negative (Negative); Protein Urine 1+ (Negative); RBC Urine Automated 0-4 /hpf (0-4); Specific Gravity Urine 1.027 (1.000-1.030); Urobilinogen Urine Negative (Negative)
[2022-03-19] MEDS: D5W AND 1/2NSS 1,000 ML IV SCH ×2 (03:38→09:06)
[2022-03-19 06:31] LABS: Estimated Average Glucose 275 mg/dl; Hemoglobin A1C 11.2 % (4.5-5.6)
--- NOTE | 2022-03-19 06:54 | XRay Report ---
XR chest 1V portable CLINICAL HISTORY: SEPSIS. COMPARISON STUDY: No previous studies for comparison. TECHNIQUE: 1 view of the chest FINDINGS: Single frontal view of the chest demonstrates the cardiomediastinal silhouette to be within normal li mits. There is a decreased inspiratory effort with elevation of the hemidiaphragms and crowding of th e bronchovascular markings at the lung bases and centrally. The lungs are clear of alveolar opacities . There is no evidence for pleural effusion. There is no evidence for vascular congestion. There is n o acute osseous pathology. IMPRESSION: 1. . There is a decreased inspiratory effort with otherwise no acute chest disease. ACT 112: Negative or not required by law. Electronically signed by: Fox Stauffer M.D. 03/19/2022 6:53 AM
[2022-03-19 07:19] LABS: BUN Creatinine Ratio 15.5 (10-20); Calcium 8.6 mg/dl (8.5-10.1); Creatinine Clr Calc Pharmacy 120.8 ml/min; Est GFR (African American) 119.8 ml/min; Est GFR (Non-African American) 103.4 ml/min; Magnesium 1.9 mg/dl (1.7-2.4); Phosphorus 1.9 mg/dl (2.5-4.9); Potassium 4.3 mmol/L (3.5-5.1)
[2022-03-19 07:20] LABS: Hematocrit (blood only) 46.2 % (42-52); Mean Corpuscular Hemoglobin 31.8 pg (25-34); Mean Corpuscular Hgb Conc 36.8 g/dL (32-36); Mean Corpuscular Volume 86.4 fL (80-100); Mean Platelet Volume 8.9 fL (7.4-10.4); Platelet Count 273 K/uL (130-400); RDW Coefficient of Variation 12.1 % (11.5-14.5); RDW Standard Deviation 37.9 fL (36.4-46.3); Red Blood Count 5.35 M/uL (4.7-6.1); White Blood Count 20.96 K/uL (4.8-10.8)
[2022-03-19] MEDS ORDERED: INSULIN ASPART PER UNIT SC SCH (07:30)
--- NOTE | 2022-03-19 07:30 | CT Scan Report ---
CT abd pelvis IV con only CLINICAL HISTORY: Diffuse abdominal pain. DKA . Type I diabetic COMPARISON STUDY: No previous studies for comparison. CT DOSE: 333.41 mGy.cm TECHNIQUE: Standard CT of the Abdomen and Pelvis was performed with IV contrast. A dose lowering romaine hnique was utilized adhering to the principles of ALARA. Contrast Volume: Optiray 320, 94 ml. The patient did not receive oral contrast. FINDINGS: Lung base: The lung bases are clear. Abdominal cavity: There is no evidence for abdominal mass, adenopathy or ascites. Liver: There is homogeneous attenuation of the liver parenchyma. There is no evidence for enhancing m ass lesion. Spleen: There is homogeneous attenuation of the splenic parenchyma. There is no enhancing mass lesion . Pancreas: There is homogeneous attenuation of the pancreatic parenchyma. There is no evidence for mas s lesion or peripancreatic fluid collection. Gall Bladder: The gallbladder is well distended with no evidence for intraluminal calculi, wall thick ening or pericholecystic edema. Adrenal glands: The adrenal glands are normal in size and attenuation. There is no evidence for enhan cing mass lesion. Kidneys: There is homogeneous attenuation of the renal parenchyma bilaterally. There is no evidence f or renal calculus or hydronephrosis. There is no evidence for enhancing mass. Bowel: There is marked distention of the stomach with liquid. This could relate to gastroparesis vers us bladder outlet obstruction. The remaining bowel loops are normally placed within the abdomen and p valerie without evidence for dilatation or obstruction. There is no evidence for mass lesion. There are no inflammatory changes present. There is no evidence for free air. There is evidence for a normal a ppendix in the right lower quadrant. Bladder: The bladder is also grossly distended with no evidence for focal mass, calculus or diverticu lum. : There is no evidence for pelvic mass or adenopathy. There is no evidence for pelvic ascites. Vasculature: There is no evidence for aneurysmal dilatation of the abdominal aorta. Osseous structures: There is no acute osseous pathology. IMPRESSION: 1. There is marked distention of the stomach with liquid. This could relate to gastroparesis versus g astric outlet obstruction. 2. No evidence for bowel obstruction. 3. Marked distention of the urinary bladder is also present. ACT 112: Negative or not required by law. Electronically signed by: Fox Stauffer M.D. 03/19/2022 7:27 AM
[2022-03-19 07:37] LABS: Basophils # (auto) 0.02 K/uL (0-0.2); Basophils % (auto) 0.1 %; Immature Granulocytes # (auto) 0.18 K/uL (0.00-0.02); Immature Granulocytes % (auto) 0.9 %; Lymphocytes # (auto) 3.19 K/uL (1.2-3.4); Lymphocytes % (auto) 15.2 %; Monocytes # (auto) 2.22 K/uL (0.11-0.59); Monocytes % (auto) 10.6 %; Neutrophils # (auto) 15.35 K/uL (1.4-6.5); Neutrophils % (auto) 73.2 %
[2022-03-19] MEDS ORDERED: ENOXAPARIN INJ 40 MG/0.4 ML SYR SQ SCH (09:00)
[2022-03-19] MEDS: INSULIN ASPART PER UNIT SC SCH ×3 (09:02→17:12)
[2022-03-19] MEDS: PIPERACILLIN/TAZOBACTAM 3.375 GM in DEXTROSE 5% 100 ML IV SCH ×2 (09:05→16:34)
[2022-03-19] MEDS ORDERED: COUGH DROP (SUGAR FREE) LOZ 24 LOZ/1 BOX BUCCAL STA (09:17)
[2022-03-19 10:27] LABS: BUN Creatinine Ratio 13.8 (10-20); Calcium 9.1 mg/dl (8.5-10.1); Creatinine Clr Calc Pharmacy 114.2 ml/min; Est GFR (African American) 111.9 ml/min; Est GFR (Non-African American) 96.5 ml/min; Phosphorus 2.6 mg/dl (2.5-4.9); Potassium 4.1 mmol/L (3.5-5.1)
--- NOTE | 2022-03-19 10:33 | Electrocardiogram Report ---
Test Reason : Blood Pressure : / mmHG Vent. Rate : 114 BPM Atrial Rate : 114 BPM P-R Int : 150 ms QRS Dur : 094 ms QT Int : 358 ms P-R-T Axes : 065 076 028 degrees QTc Int : 493 ms Sinus tachycardia Otherwise normal ECG No previous ECGs available Confirmed by Jimi Crowe ([id number]) on 03/19/2022 10:32:49 AM Referred By: REFERRED SELF Confirmed By:Jimi Crowe
[2022-03-19] MEDS ORDERED: INSULIN GLARGINE SOLOSTAR 100 UNITS/ML 3 ML PEN SC ONE (12:30)
[2022-03-19] MEDS ORDERED: INSULIN ASPART PER UNIT SC ONE (13:30)
--- NOTE | 2022-03-19 13:42 | Pharmacy Report ---
Pharmacy Glycemic Short Note 2 - Date of Service March 19, 2022 - Glycemic Short BSG Results (Last 24 hours): 03/18/22 03/18/22 03/18/22 20:40 21:57 22:21 Glucose 556 H* 496 H* POC Glucose 469 H* 03/18/22 03/18/22 03/19/22 22:29 23:47 00:42 Glucose POC Glucose 451 H* 390 H* 312 H* 03/19/22 03/19/22 03/19/22 01:21 02:23 02:26 Glucose 262 H POC Glucose 280 H 260 H 03/19/22 03/19/22 03/19/22 03:16 04:18 05:22 Glucose POC Glucose 226 H 234 H 242 H 03/19/22 03/19/22 03/19/22 06:21 08:04 09:34 Glucose 244 H 219 H POC Glucose 239 H 03/19/22 03/19/22 03/19/22 10:31 11:58 13:05 Glucose POC Glucose 238 H 272 H 235 H OUTPATIENT ANTIDIABETIC REGIMEN: * Novolog pump (Omnipod) * per patient, basal rate of 1.4 unit/hr with nutritional / prandial insulin per carb ratio of 1 unit per 4 grams CHO consumed * HbA1c: 11.2% (03/19/22) ASSESSMENT: * BT is a 21 year old male with T1DM who presented to ED with severe metabolic acidosis secondary to DKA (likely related to insulin pump failure) * Labs on admission, BSG 556 mg/dL, serum bicarbonate 8, anion gap 31; pH of 7.03 * Insulin gtt and IV fluids initiated, labs are now significantly improved as well as patient's lethargy/AMS * Discussed with tooling engineer, patient ~meets criteria for insulin gtt transition so will give SC basal * Diet ordered with lunch, will discontinue dextrose-containing IV fluids * Will give ~80% of home basal dose now with plan to let insulin gtt turn itself off PLAN FOR INPATIENT GLYCEMIC CONTROL: * Continue insulin infusion for now with plan to transition to SC if basal insulin is adequate * Basal insulin * Lantus 26 units SC x 1 (~80% of home basal dose) * Bolus insulin * NovoLog per scale ACHS * Nutritional / Prandial insulin per carb ratio of 1 unit per 4 grams CHO consumed
[2022-03-19 14:59] LABS: Potassium 3.9 mmol/L (3.5-5.1)
[2022-03-19 15:00] LABS: BUN Creatinine Ratio 12.5 (10-20); Calcium 9.6 mg/dl (8.5-10.1); Creatinine Clr Calc Pharmacy 129.6 ml/min; Est GFR (African American) 130.4 ml/min; Est GFR (Non-African American) 112.5 ml/min; Magnesium 1.9 mg/dl (1.7-2.4); Phosphorus 1.8 mg/dl (2.5-4.9)
--- NOTE | 2022-03-20 11:48 | Discharge Summary ---
Date of Service March 19, 2022 Discharge Data Allergies Allergy/AdvReac Type Severity Reaction Status Date / Time No Known Allergies Allergy Verified 03/18/22 21:12 Consultations 03/18/22 21:50 ED Decision to Admit Stat 03/19/22 01:43 Consult [employer] Architect Routine Ordered Studies 03/18/22 21:40 CT abd pelvis IV con only Urgent Diabetes Follow up Diabetes Follow-up Needed for HgbA1c >9% Discharge Plan Discharge Items Patient Disposition: Home - Self-Care Reason For Visit: DKA Discharge Diagnosis: Diabetic ketoacidosis Hx of type 1 diabetes Electrolytes imbalance Condition on Discharge: Critical Activity: Resume your previous activity Non-emergency contact: Primary Care Provider and Specialist Call non-emergency contact if: you have any medication questions, your symptoms worsen and your temperature is above 101 Follow-up/Referrals: PCP,NO [Primary Care Provider] - Diet: Carb Count or DM1 Addtl Attending Provider Instructions: You were admitted for diabetic complications ( Diabetic ketoacidosis, DKA ). You were advised to stay in the hospital for an additional day until your blood culture resolves tomorrow to rule out any bacterial infection, unfortunately you decided to leave. Please follow up with your primary care provider within 24 to 48hrs. If you develop any fever, chills or your symptoms reoccur please go to the nearest hospital to seek urgent medical attention. You and your parent understood the risks by discharging too early such as worsening symptoms, diabetic complication, sepsis. Please continue monitor your blood sugar closely and follow up with your endocrinology to adjust your insulin. Pending Studies at Discharge: Yes Studies:: blood culture Stand-Alone Forms: [facility] Second & Fourth, Smoking Cessation Medications and DC Order Prescriptions: Continued insulin aspart U-100 [Novolog U-100 Insulin aspart] 100 unit/mL Solution 0 unit continuous subcutaneous infusion CONTINOUS RF: 0 Discharge Orders: Discharge Order (Routine); Ordered 03/19/22 Ordered By: Dang Mena/Other Patient Handouts: Managing Type 1 Diabetes, Diabetic Ketoacidosis Admission Data Admit Date/Time: 03/18/22 23:14 Attending Provider: Dang See Admit Provider: Michael Arana Primary Care Provider: PCP,NO Other Providers: Michael Arana ; Narinder Marin Other Interventions: Discharge Summary Assessment (RN) Last Done: 03/19/22 18:01
== END 2022-03-19 18:32 | disposition home or self-care (01) | DRG 638 ==
LOC: ED 20:17 → 1E 23:14